=== PATIENT | female | born 1965 ===

== ENCOUNTER 2021-09-08 08:29 | Day surgery (SDC) | payer BC ==
[~2021-09-08 08:29] MED LIST: Metoclopramide 10 MG/2 ML SDV IV PRN
[2021-09-08] MEDS: Sodium Chloride 0.9% 1,000 ML IV SCH (08:53)
[2021-09-08] MEDS ORDERED: Propofol 1,000 MG/100 ML SDV ONE (10:00)
== END 2021-09-08 11:00 | disposition home or self-care (01) ==
LOC: LB.SDS 08:29
PROVIDERS: ATTEND Surgery
DX: Z12.11 Encounter for screening for malignant neoplasm of colon (principal); K57.30 Diverticulosis of large intestine without perforation or abscess without bleeding; J45.909 Unspecified asthma, uncomplicated; Z80.0 Family history of malignant neoplasm of digestive organs
CPT/HCPCS: J2704; J7030